=== PATIENT | female | born 1985 | race Two or more races ===

== ENCOUNTER 2019-02-09 17:11 | Outpatient (CLI) | payer BC ==
[2019-02-09 19:21] VITALS: BP 129/75; PULSE 99; RESP 14; TEMP 97.2
--- NOTE | 2019-02-09 19:57 | P.MSEPDOC ---
Presenting Problems - Arrival Data Date of Arrival on Unit: 02/09/19 Time of Arrival on Unit: 17:08 Mode of Transport: Ambulatory - Complaint Comment: pt reports a small clot passed this morning, also reports light pink bleeding approximately once a month. Medical History - Information : 1 Para: 0 Term: 0 : 0 Abortions: Spontaneous or Elective: 0 Number of Living Children: 0 - Gestational Age Gestational Age by DIMITRIOS (wks/days): 26 Weeks and 6 Days Review of Systems - Review of Systems Constitutional: No problems Breast: No problems ENT: No problems Cardiovascular: No problems Respiratory: No problems Gastrointestinal: No problems Genitourinary: No problems Musculoskeletal: No problems Neurological: No problems Skin: No problems Vital Signs - Temperature Temperature: 97.2 F Temperature Source: Temporal Artery Scan - Pulse Right Brachial Pulse Rate: 99 Pulse Assessment Method: Automatic Cuff - Respirations Respiratory Rate: 14 Oxygen Delivery Method: Room Air - Blood Pressure Right Arm Blood Pressure: 129/75 Blood Pressure Mean: 93 Blood Pressure Source: Automatic Cuff Medical Screen Scoring (Pre) - Cervical Exam Dilation: 0 cm = 0 - Uterine Contractions Frequency: N/A Duration: N/A Intensity: N/A - Maternal Vital Signs Maternal Temperature: N/A Maternal Blood Pressure: N/A Signs of Preeclampsia: N/A Maternal Respirations: N/A - Maternal Trauma Maternal Trauma: N/A - Assessment - Baby A Baseline FHR: 145 Heart Rate - NICHD Category: Category I (Normal) = 0 NST: Reactive Position: N/A Station: N/A - Total Score - Baby A Total Score - Baby A: 0 - Total Score - Baby B Total Score - Baby B: 0 - Total Score - Baby C Total Score - Baby C: 0 - Level of Risk - Baby A Level of Risk - Baby A: Low (0-5) - Level of Risk - Baby B Level of Risk - Baby B: Low (0-5) - Level of Risk - Baby C Level of Risk - Baby C: Low (0-5) Physician Notification (Pre) - Physician Notified Physician Notified Date: 02/09/19 Physician Notified Time: 17:22 Physician/Practitioner Notifed:: cesar Spoke With: cesar New Order Received: Yes - Notification Comment Comment: dr guerrero performs spec/vag exam, orders pt monitored for one hour. after one hour dr guerrero in department and discharges pt home Disposition - Disposition OB Disposition: Discharge to home Discharge Date: 02/09/19 Discharge Time: 16:33 I agree with the RN Medical Screening Exam: Yes Risk & Benefit of care provided described in d/c instruction: Yes Diagnosis: SPOTTING COMPLICATING , SECOND TRIMESTER (Patient presented to triage with complaints of spotting that occurs earlier today. Patient states that she has this approximately once a month. Previous ultrasound was normal. In discussion with the patient sounds as though this occurs most commonly after a bowel movement. I did do a speculum exam there is no evidence of any blood only a yeast infection. Cervix was closed and thick. heart tones were reassuring. Patient is advised to use [id number] Monistat. She is avoid intercourse and be on pelvic rest until her next visit. This point there is no evidence of bleeding.)
== END 2019-02-09 18:35 | disposition home or self-care (01) ==
LOC: FBPOP 17:11
PROVIDERS: ATTEND Obstetrics & Gynecology
DX: O26.852 Spotting complicating pregnancy, second trimester (principal); Z3A.26 26 weeks gestation of pregnancy
CPT/HCPCS: 99213

== ENCOUNTER 2019-05-17 15:59 | Inpatient (IN) | payer BC, OTHER ==
[2019-05-17] MEDS ORDERED: ZOLPIDEM 5 MG TAB PO PRN (16:18)
[2019-05-17] MEDS ORDERED: BUTORPHANOL 1 MG/ML 1 ML VIAL IV PRN (16:18)
[2019-05-17] MEDS ORDERED: DINOPROSTONE 10 MG INSERT.ER VAGINAL ONE (16:18)
[2019-05-18] MEDS ORDERED: TERBUTALINE 1 MG/ML VIAL SQ PRN (06:09)
[2019-05-18] MEDS ORDERED: CARBOPROST TROMETHAMINE 250 MCG/ML 1 ML AMP IM PRN (06:09)
[2019-05-18] MEDS ORDERED: OXYTOCIN 10 UNIT/ML 1 ML VIAL IM PRN (06:09)
[2019-05-18] MEDS ORDERED: LIDOCAINE 0.5% (PF) 5 MG/ML (50 ML SDV) SQ PRN (06:09)
[2019-05-18] MEDS ORDERED: METHYLERGONOVINE 0.2 MG/ML 1 ML AMP IM PRN (06:09)
[2019-05-18] MEDS ORDERED: OXYTOCIN 30 UNITS/500 ML NS 30 UNIT in SALINE 1 500ML.BAG IV SCH (06:15)
[2019-05-18] MEDS ORDERED: LACTATED RINGERS 1,000 ML IV SCH (06:15)
[2019-05-18] MEDS: LACTATED RINGERS 1,000 ML IV SCH ×3 (06:15→20:33)
[2019-05-18 06:29] LABS: Basophils % (A) 0 %; Eosinophils # (A) 0.1 k/uL (0-0.7); Eosinophils % (A) 0 %; HCT 40.1 % (34.0-46.0); HGB 13.7 gm/dL (11.4-16.0); Lymphocytes # (A) 2.2 k/uL (1.0-4.8); Lymphocytes % (A) 17 %; MCH 31.1 pg (25.0-35.0); MCHC 34.2 g/dL (31.0-37.0); Mean Platelet Volume 7.9; Monocytes # (A) 0.6 k/uL (0-1.0); Monocytes % (A) 5 %; Neutrophils # (A) 9.8 k/uL (1.3-7.7); Neutrophils % (A) 77 %; Platelet Count 237 k/uL (150-450); RBC 4.41 m/uL (3.80-5.40); RDW 14.6 % (11.5-15.5); WBC 12.8 k/uL (3.8-10.6)
--- NOTE | 2019-05-18 08:05 | P.HPOB ---
History of Present Illness H&P Date: 05/18/19 Chief Complaint: Induction of labor 33-year-old presents at 40 weeks and 5 days for two-stage induction of labor. Her cervix is closed, 50% effaced, -3 station. She is fernando irregularly. heart tones 130 with moderate variability and reactive. Review of Systems All systems: negative Constitutional: Denies chills, Denies fever Eyes: denies blurred vision, denies pain Ears, nose, mouth and throat: Denies headache, Denies sore throat Cardiovascular: Denies chest pain, Denies shortness of breath Respiratory: Denies cough Gastrointestinal: Denies abdominal pain, Denies diarrhea, Denies nausea, Denies vomiting Genitourinary: Denies dysuria, Denies hematuria Musculoskeletal: Denies myalgias Integumentary: Denies pruritus, Denies rash Neurological: Denies numbness, Denies weakness Psychiatric: Denies anxiety, Denies depression Endocrine: Denies fatigue, Denies weight change Past Medical History Past Medical History: No Reported History Additional Past Medical History / Comment(s): Obstetric history: This is her first . She's had care with me since first trimester. Blood type O+, antibodies negative, HIV nonreactive, rubella immune, RPR nonreactive, hepatitis B negative, toxoplasma negative. Last ultrasound was done 05/13/2019 and the baby weighed 9 lbs. 3 oz., NAYELI 13.8 cm. History of Any Multi-Drug Resistant Organisms: MRSA Date of last positivie culture/infection: 07/09/18 MDRO Source:: Right Arm Additional Past Surgical History / Comment(s): kidney stent placed 10years ago Past Anesthesia/Blood Transfusion Reactions: No Reported Reaction Past Psychological History: Anxiety Additional Psychological History / Comment(s): never medicated Smoking Status: Never smoker Past Alcohol Use History: None Reported Past Drug Use History: None Reported - Past Family History Mother Family Medical History: Hypertension Additional Family Medical History / Comment(s): anxiety Medications and Allergies Home Medications Medication Instructions Recorded Confirmed Type Pnv,Calcium 72/Iron/Folic Acid 1 tab PO DAILY 02/09/19 05/17/19 History [ Plus Tablet] Allergies Allergy/AdvReac Type Severity Reaction Status Date / Time No Known Allergies Allergy Verified 02/09/19 17:14 Exam Osteopathic Statement: *. No significant issues noted on an osteopathic structural exam other than those noted in the History and Physical/Consult. Vital Signs Pulse Resp BP Pulse Ox 05/17/19 16:18 108 H 18 134/86 97 Intake and Output 05/17/19 05/18/19 05/18/19 22:59 06:59 14:59 Other: # Voids 1 1 Weight 92.079 kg Heart: Regular rate and rhythm Lungs: Clear to auscultation bilaterally Abdomen: Soft, nontender Extremities: Negative Homans sign Results Result Diagrams: 05/18/19 06:07 Abnormal Lab Results - Last 24 Hours (Table) 05/18/19 Range/Units 06:07 WBC 12.8 H (3.8-10.6) k/uL Neutrophils # 9.8 H (1.3-7.7) k/uL Assessment and Plan (1) Post-dates Current Visit: Yes Status: Acute Code(s): O48.0 - POST-TERM SNOMED Code(s): 65759004 Plan: 1. Induction of labor with Cervidil and then amniotomy and Pitocin. 2. Anticipate normal vaginal delivery
[2019-05-18] MEDS ORDERED: CITRIC ACID-SODIUM CITRATE 15 ML CUP PO ONE (12:21)
[2019-05-18] MEDS ORDERED: ONDANSETRON 4 MG/2 ML VIAL ONE (12:50)
[2019-05-18] MEDS ORDERED: MORPHINE SULFATE (PF) 0.3 MG/0.3 ML SYR ONE (12:50)
[2019-05-18] MEDS ORDERED: KETOROLAC 30 MG/ML 1 ML VIAL ONE (12:50)
[2019-05-18] MEDS ORDERED: NALBUPHINE 10 MG/ML (1 ML AMP) ONE (12:50)
[2019-05-18] MEDS ORDERED: ePHEDrine SULFATE/0.9% NACL/PF 50 MG/5 ML SYRINGE IV ONE (12:50)
[2019-05-18] MEDS ORDERED: OXYTOCIN 10 UNIT/ML 1 ML VIAL ONE (12:50)
--- NOTE | 2019-05-18 13:25 | P.OP ---
Date of Procedure: 05/18/19 Preoperative Diagnosis: 1. at 40 weeks and 6 days 2. Failure to progress 3. Suspect macrosomia Postoperative Diagnosis: 1. 40 weeks and 6 days 2. Failure to progress Procedure(s) Performed: Primary low transverse Anesthesia: spinal Surgeon: Raiza Davis Pointer Helper #1: Cyrus Shi Estimated Blood Loss (ml): 600 IV fluids (ml): 800 Urine output (ml): 50 Pathology: none sent Condition: stable Disposition: floor Indications for Procedure: 33-year-old presents at 40 weeks and 5 days for two-stage induction of labor. Her cervix is closed, 50% effaced, -3 station. She is fernando irregularly. heart tones 130 with moderate variability and reactive. Cervidil was placed. Estimated blood 12 hours until she did have some cramping. When the Cervidil was removed she was fingertip dilated 60% effaced and -3 station. She was on Pitocin for over 6 hours with no cervical change. Informed consent was obtained and section was called. Operative Findings: Viable female, Apgars 8, 9, weight 8 lbs. 9 oz. Description of Procedure: Patient was taken to the operating room where spinal anesthesia was found be adequate. She was prepped and draped in normal sterile fashion in dorsal supine position with a leftward tilt. Pfannenstiel skin incision was made the scalpel and carried through to the underlying layer of fascia with the scalpel. Fascia was incised in midline and carried bilaterally with the Walker scissors. The superior aspect of the fascial incision was grasped with [place] clamps elevated and the underlying rectus muscles dissected off with the Walker's. Attention was then turned to inferior aspect of same incision which in a similar fashion was grasped tented up and the underlying rectus muscles dissected off with the Walker's. The rectus muscles were the midline and the peritoneum was identified tented up and entered sharply with the scalpel. The incision was extended superiorly and inferiorly with good visualization of the bladder. The bladder blade was inserted and the vesicouterine peritoneum was incised the [place] then carried bilaterally and bladder flap created digitally. A low transverse incision was then made on the uterus with the scalpel. This was carried bilaterally and digital manner. 's head delivered atraumatically, nose and mouth bulb suctioned, cord clamped and cut, infant handed off to waiting nurses. Apgars 8,9, weight 8 lbs. 9 oz. Placenta delivered manually, intact with three-vessel cord. The uterus is exteriorized and cleared of all clots and debris. The uterine incision was closed with 0 Vicryl in a running locked fashion. Second layer of the same sutures used in imbricating fashion to obtain excellent hemostasis. Bladder flap was then reapproximated using 2-0 Vicryl in a running fashion. Both ovaries and tubes appeared normal. The uterus was placed back into the abdomen. The peritoneum was reapproximated using 2-0 Vicryl in a running fashion. The muscles were reapproximated using 2- 0 Vicryl in interrupted fashion. The fascia was reapproximated using 0 Vicryl in a running fashion. The subcutaneous tissues closed with 3-0 Vicryl running fashion. The skin was closed nydia. Patient tolerated the procedure well, sponge and instrument counts were correct times 2 and she was taken to the rec overy room in stable condition.
[2019-05-18] MEDS ORDERED: diphenhydrAMINE 25 MG CAP PO PRN (13:31)
[2019-05-18] MEDS ORDERED: ONDANSETRON 4 MG/2 ML VIAL IVP PRN (13:31)
[2019-05-18] MEDS ORDERED: NALOXONE 0.4 MG/ML 1 ML VIAL IV PRN (13:31)
[2019-05-18] MEDS ORDERED: diphenhydrAMINE 50 MG CAP PO PRN (13:31)
[2019-05-18] MEDS ORDERED: diphenhydrAMINE 50 MG/ML 1 ML VIAL IVP PRN ×2 (13:31)
[2019-05-18] MEDS ORDERED: ZOLPIDEM 5 MG TAB PO PRN (13:31)
[2019-05-18] MEDS ORDERED: LANOLIN CREAM 5 GM TUBE TOPICAL PRN (13:31)
[2019-05-18] MEDS ORDERED: HYDROcodone/APAP 7.5-325MG 1 EACH TAB PO PRN (13:31)
[2019-05-18] MEDS ORDERED: SIMETHICONE 80 MG CHEWABLE PO PRN (13:31)
[2019-05-18] MEDS ORDERED: METOCLOPRAMIDE 5 MG/ML 2 ML VIAL IVP PRN (13:31)
[2019-05-18] MEDS ORDERED: OXYTOCIN 20 UNITS/1000 ML NS 1,000 ML IV SCH (13:45)
[2019-05-18] MEDS: KETOROLAC 30 MG/ML 1 ML VIAL IVP PRN (19:46)
[2019-05-18] MEDS: SENNOSIDES-DOCUSATE SODIUM 1 EACH TAB PO SCH (19:47)
[2019-05-19] MEDS: LACTATED RINGERS 1,000 ML IV SCH ×3 (00:53→19:59)
[2019-05-19] MEDS: KETOROLAC 30 MG/ML 1 ML VIAL IVP PRN (05:06)
[2019-05-19] MEDS: ACETAMINOPHEN TAB 325 MG TAB PO PRN (07:51)
[2019-05-19] MEDS: SENNOSIDES-DOCUSATE SODIUM 1 EACH TAB PO SCH ×2 (07:51→20:01)
[2019-05-19 07:52] LABS: Basophils % (A) 0 %; Eosinophils # (A) 0.1 k/uL (0-0.7); Eosinophils % (A) 1 %; HCT 32.6 % (34.0-46.0); HGB 10.9 gm/dL (11.4-16.0); Lymphocytes # (A) 1.6 k/uL (1.0-4.8); Lymphocytes % (A) 14 %; MCH 30.8 pg (25.0-35.0); MCHC 33.6 g/dL (31.0-37.0); MCV 91.8 fL (80.0-100.0); Mean Platelet Volume 8.9; Monocytes # (A) 0.7 k/uL (0-1.0); Monocytes % (A) 6 %; Neutrophils # (A) 9.3 k/uL (1.3-7.7); Neutrophils % (A) 79 %; Platelet Count 172 k/uL (150-450); RBC 3.55 m/uL (3.80-5.40); RDW 14.6 % (11.5-15.5); WBC 11.8 k/uL (3.8-10.6)
--- NOTE | 2019-05-19 08:18 | P.PNOBGPC ---
Subjective - Subjective Principal diagnosis: Status post primary low transverse postop day #1 Interval history: Patient seen and examined. Denies nausea, vomiting, chest pain, shortness of breath or calf pain. She is ambulating without difficulty, passing flatus and tolerating regular diet. She has not been able to void on her own yet. Patient reports: Reports appetite normal, Reports voiding normally, Reports pain well controlled, Reports ambulating normally [place]: doing well Objective - Vital Signs Latest vital signs: Vital Signs Temp Pulse Resp BP Pulse Ox 05/19/19 03:49 98.3 F 76 17 123/76 97 05/19/19 00:00 97.9 F 83 16 123/68 100 05/18/19 20:00 97.7 F 84 18 105/58 98 05/18/19 15:28 100 17 115/66 98 05/18/19 14:58 98.5 F 94 16 130/68 97 05/18/19 14:28 90 17 132/77 05/18/19 14:13 109 H 17 127/69 97 05/18/19 13:47 93 17 129/71 98 05/18/19 13:42 105 H 16 125/63 100 05/18/19 13:28 97.6 F 90 17 133/65 100 Intake and Output 05/18/19 05/19/19 05/19/19 22:59 06:59 14:59 Output Total 275 350 Balance -275 -350 Output: Urine 275 350 Straight 350 Uretheral (Goins) 100 Other: # Voids 0 - Exam Lungs: bilateral: normal Chest: Normal S1, Normal S2 Extremities: Present: normal Abdomen: Present: normal appearance, soft. Absent: distention, tenderness Incision: Present: normal, dry, intact Uterus: Present: normal, firm - Labs Labs: Abnormal Lab Results - Last 24 Hours (Table) 05/19/19 Range/Units 07:18 WBC 11.8 H (3.8-10.6) k/uL RBC 3.55 L (3.80-5.40) m/uL Hgb 10.9 L (11.4-16.0) gm/dL Hct 32.6 L (34.0-46.0) % Neutrophils # 9.3 H (1.3-7.7) k/uL Assessment and Plan (1) Post-dates Current Visit: Yes Status: Resolved Code(s): O48.0 - POST-TERM SNOMED Code(s): 02605912 (2) Status post primary low transverse section Current Visit: Yes Status: Acute Code(s): Z98.891 - HISTORY OF UTERINE SCAR FROM PREVIOUS SURGERY SNOMED Code(s): 003356186 Plan: 1. Increase ambulation 2. By mouth pain medication
--- NOTE | 2019-05-19 08:41 | P.PN ---
Progress Note - Text Anesthesia POD 1. Patient is status post section under spinal anesthesia with intra-thecal preservative free morphine 300 g. Moderate pruritus, excellent post-op analgesia, and no headache or other complications.
[2019-05-19] MEDS: IBUPROFEN 600 MG TAB PO PRN ×2 (11:57→19:58)
[2019-05-20] MEDS: ACETAMINOPHEN TAB 325 MG TAB PO PRN ×2 (00:19→09:13)
[2019-05-20] MEDS: LACTATED RINGERS 1,000 ML IV SCH (00:20)
[2019-05-20] MEDS: IBUPROFEN 600 MG TAB PO PRN (03:27)
--- NOTE | 2019-05-20 07:20 | P.DS ---
Providers Date of admission: 05/17/19 15:59 Expected date of discharge: 05/20/19 Attending physician: Raiza Davis Primary care physician: Stated None - Discharge Diagnosis(es) (1) Post-dates Current Visit: Yes Status: Resolved (2) Status post primary low transverse section Current Visit: Yes Status: Acute Hospital Course: Patient presented for induction of labor at 40 weeks and 5 days. Cervidil had been placed but she didn't make any cervical change despite Cervidil and then Pitocin. She underwent a primary low transverse . course was uncomplicated. She'll be discharged home day #2 in stable condition to follow-up with me in one week. Plan - Discharge Summary New Discharge Prescriptions: New Ibuprofen [Motrin] 600 mg PO Q6HR PRN #30 tab PRN Reason: Mild Pain Or Fever >= 100.5 HYDROcodone/APAP 7.5-325MG [[place] 7.5-325] 1 each PO Q6H PRN #12 tab PRN Reason: Severe Pain No Action Pnv,Calcium 72/Iron/Folic Acid [ Plus Tablet] 1 tab PO DAILY Discharge Medication List Pnv,Calcium 72/Iron/Folic Acid [ Plus Tablet] 1 tab PO DAILY 02/09/19 [History] HYDROcodone/APAP 7.5-325MG [[place] 7.5-325] 1 each PO Q6H PRN #12 tab 05/20/19 [Rx] Ibuprofen [Motrin] 600 mg PO Q6HR PRN #30 tab 05/20/19 [Rx] Follow up Appointment(s)/Referral(s): Raiza Davis DO [Doctor of Osteopathic Medicine] - 1 Week Discharge Disposition: HOME SELF-CARE
[2019-05-20] MEDS: SENNOSIDES-DOCUSATE SODIUM 1 EACH TAB PO SCH (09:14)
[2019-05-20 10:22] VITALS: BP 124/62; PULSE 91; RESP 18; TEMP 97.7
== END 2019-05-20 12:41 | disposition home or self-care (01) | DRG 787 ==
LOC: 4FBP 15:59
PROVIDERS: ADMIT Obstetrics & Gynecology; ATTEND Obstetrics & Gynecology
PROC: 3E033VJ Introduction of Other Hormone into Peripheral Vein, Percutaneous Approach (ICD-10-PCS; principal; 2019-05-18 06:30)
PROC: 10D00Z1 Extraction of Products of Conception, Low, Open Approach (ICD-10-PCS; principal; 2019-05-18 06:30)
PROC: 3E0P7VZ Introduction of Hormone into Female Reproductive, Via Natural or Artificial Opening (ICD-10-PCS; principal; 2019-05-18 06:30)
PROC: 10907ZC Drainage of Amniotic Fluid, Therapeutic from Products of Conception, Via Natural or Artificial Opening (ICD-10-PCS; principal; 2019-05-18 06:30)
DX: O48.0 Post-term pregnancy (principal); Z16.24 Resistance to multiple antibiotics; O62.2 Other uterine inertia; Z37.0 Single live birth; Z3A.40 40 weeks gestation of pregnancy; Z82.49 Family history of ischemic heart disease and other diseases of the circulatory system
CPT/HCPCS: 85025; 86850; 86870; 86880; 86900; 86901